=== PATIENT | male | born 1990 | race African-American/Black ===

== ENCOUNTER 2021-06-28 21:59 | Emergency (ER) | payer MEDICAID, OTHER ==
[~2021-06-28] VITALS: Ht 177.8 cm; Wt 83.9 kg
[2021-06-28 21:59] VITALS: BP 135/91
== END 2021-06-29 05:13 | disposition left against medical advice (07) ==
LOC: ER 22:01
DX: S71.131D Puncture wound without foreign body, right thigh, subsequent encounter (principal); Z53.21 Procedure and treatment not carried out due to patient leaving prior to being seen by health care provider; W34.09XD Accidental discharge from other specified firearms, subsequent encounter